=== PATIENT | female | born 1950 | race Caucasian/White ===

== ENCOUNTER 2024-09-27 12:27 | Inpatient (IN) | payer BC, SELFPAY ==
[2024-09-27] VITALS (12 sets, daily range): BP systolic 79–141; BP diastolic 43–68; BMI 29.4
--- NOTE | 2024-09-27 07:15 | ED.GENMED ---
History of Present Illness
General
Chief Complaint: Dizziness
Time Seen by Provider: 09/27/24 06:52
History of Present Illness
History of Present Illness:
74-year-old female with history of hypertension and diabetes presenting to the emergency department for nausea and dizziness. Patient reports symptoms started 2 nights ago after she ate some chicken at a restaurant. After consuming the food,
started to have shaking, fever, nausea, lightheadedness. Denies any associated vomiting or diarrhea. Denies any abdominal pain. Denies chest pain or difficulty breathing. Denies any known sick contacts. Denies weakness or numbness to
extremities. Denies additional acute medical complaint
Past History
Past History
ED Past Medical History: HTN, NIDDM and Other (sleep apnea)
Social History
Tobacco: Non-smoker
Personal:
Living: with family
Phy Exam
Physical Exam
Physical Exam:
General: Well-appearing, no clinical signs of dehydration, nontoxic and in no acute distress
HEENT: protecting airway
Neck: appears supple
CV: Normal heart rate, regular rhythm
Resp: No accessory muscle use, no increased work of breathing, lungs clear to auscultation bilaterally
Abd: Soft and non-distended, no tenderness to palpation
Extremities: No deformities, no swelling
Neuro: alert, no focal neurologic deficit
: deferred
Rectal: deferred
Psych: Normal affect
Skin: Intact
Course
Orders/Labs/Results
Orders:
Orders
09/27/24 07:00
EKG [Electrocardiogram (*1)] Urgent
Reason for Study: Chest Pain
EKG- Treatment ONCE
09/27/24 07:09
0.9% Sodium Chloride 1000 ml [Nss] 1,000 ml IV BOLUS
09/27/24 07:29
Ondansetron Injectable [Zofran] 4 mg IV NOW STA
09/27/24 07:30
COVID-19 Antigen Urgent
Source: Nasal Swab
Complete Blood Count/With Diff Urgent
Comprehensive Metabolic Panel Urgent
Urinalysis Reflex To Culture Urgent
Date Specimen was Collected: 09/27/24
Time Specimen was Collected: 07:19
Urine Microscopic Reflex Cult Urgent
Influenza A+B Rapid Molecular Urgent
SANJEEV Source: Nasal Swab
Specimen Description:
Urine Culture Urgent
SANJEEV Source: U
Specimen Description:
Date Specimen was Collected: 09/27/24
Time Specimen was Collected: 07:19
09/27/24 09:01
CT Abd/pel Without Iv Or Oral Urgent
Comment:
Reason For Exam: dizziness, fever, right flank pain
09/27/24 10:35
Cefepime HCl [Maxipime] 2,000 mg IV NOW STA
09/27/24 10:45
Blood Culture Q30M
SANJEEV Source: Blood/Venous
Specimen Description:
09/27/24 11:15
Blood Culture Q30M
SANJEEV Source: Blood/Venous
Specimen Description:
Abnormal Lab Results
09/27/24
07:30
WBC 13.0 H 10^3/uL
(4.8-10.8)
RBC 4.01 L 10^6/uL
(4.20-5.40)
Hgb 11.4 L g/dL
(12.0-16.0)
Hct 34.1 L %
(37.0-47.0)
Abs Immat Gran (auto) 0.1 H 10^3/uL
(0-0.05)
Absolute Neuts (auto) 11.1 H 10^3/uL
(1.4-6.5)
Absolute Lymphs (auto) 0.6 L 10^3/uL
(1.2-3.4)
Absolute Monos (auto) 1.2 H 10^3/uL
(0.1-0.6)
Immature Gran % 0.8 H %
(0-0.5)
Neutrophils % 85.6 H %
(42.2-75.2)
Lymphocytes % 4.5 L %
(20.5-51.1)
Sodium 132 L mmol/L
(135-145)
Carbon Dioxide 16 L mmol/L
(22-30)
BUN 36 H mg/dl
(7-17)
Creatinine 1.9 H mg/dL
(0.6-1.0)
Glucose 166 H mg/dl
(70-99)
Total Protein 6.1 L g/dl
(6.3-8.2)
Ur Occult Blood Reflex 4+ A
(Negative)
Leukocyte Esterase Rfl 3+ A
(Negative)
Urine RBC 7-10 A /HPF
(0-2)
Urine WBC (Reflex) >100 A /HPF
(0-5)
Urine Bacteria (Reflex) Few A
(Negative)
Urine Albumin (Reflex) 3+ A
(Neg - Trace)
09/27/24 07:30
09/27/24 07:30
Vital Signs
Initial and Last Documented VS:
Initial Vital Signs
Temp Pulse Resp BP Pulse Ox
98.2 F 70 20 100/64 98
09/27/24 06:28 09/27/24 06:28 09/27/24 06:28 09/27/24 06:28 09/27/24 06:28
Last Documented Vital Signs
Temp Pulse Resp BP Pulse Ox
98.2 F 90 24 100/64 94
09/27/24 06:28 09/27/24 10:45 09/27/24 10:45 09/27/24 06:28 09/27/24 10:45
MDM/Problems Addressed
MDM/Problems Addressed:
74-year-old female with history of hypertension and diabetes presenting to the emergency department for dizziness, chills, shaking. Vital signs on arrival are normal.
On exam, patient is resting comfortably, no acute distress or discomfort. Patient afebrile, nontoxic. Reassuring examination. Unremarkable cardiac pulmonary exam. No focal neurologic deficits. Patient is symptom started after eating food at a
restaurant. Could be secondary to something that she ate, however no specific GI symptoms. Does note fevers chills, generally feeling unwell. Possible viral syndrome. Will send COVID and flu. EKG obtained, nonischemic no arrhythmia. Plan for
screening laboratory analysis. Will treat patient therapeutically with IV fluids and Zofran and reassess for improvement
09:00 -labs show leukocytosis and JASPER. Urine shows hematuria and evidence of infection. Patient continues to deny any abdominal pain, notes some mild right-sided flank pain. Reports that she has had kidney stones in the past, however has not felt
them. Will obtain CT imaging to rule out stone and possible developing infected stone
10:35 - CT does show a 7 mm stone in the right proximal ureter with hydro and some stranding. Concern for developing infection. In discussion with urology, plan for admission and antibiotic
*Pulse Oximetry
SaO2: 98
Oxygen Mode of Delivery: Room air
Patient hypoxic: no
*EKG
Interpreted by ED Provider?: Yes
EKG Intrepretation Date: 09/27/24
EKG Intrepretation Time: 07:29
Interpretation: normal
Comparison EKG: no changes (04/06/2015)
Heart Rate: 69
Rate: normal
Rhythm: sinus
[place]: normal axis
Interval: normal interval
QRS Pattern: normal QRS
Ischemia: no ischemia
*Critical Care Note
Total Time (30-74mins, 75-104mins- exclusive of procedures): Not Applicable
ED Attending Note
-
Portions of this chart may have been created with voice recognition software.� Occasional wrong word or��sound alike� substitutions may have occurred due to the inherent limitations of voice recognition software.
Discharge Plan
Departure
Patient Disposition: Admit
Date of Disposition: 09/27/24
Time of Disposition: 10:37
Presentation/result/management discussed w/ accepting MD/: Hospitalist
Patient with high blood pressure during this ER visit?: No
Condition: Fair
Discharge Problem:
Calculus of proximal right ureter, Urinary tract infection
Prescriptions:
No Action
lisinopril 20 MG tablet
20 mg PO DAILY
metoprolol tartrate [Lopressor] 50 MG tablet
50 mg PO DAILY
aspirin 81 MG tablet,chewable
81 mg PO DAILY
Januvia 100 MG tablet
100 mg PO DAILY
atorvastatin [Lipitor] 10 mg Tablet
10 mg PO HS
metformin 500 mg Tablet Extended Release 24 Hr
1,000 mg PO BID
Referrals:
Kathy Cummins DO [Family Provider, Family Practice]
Interventions
Interventions:
*Risk Screen - Suicide Last Done: 09/27/24 06:28
*Neglect/Abuse Screening Last Done: 09/27/24 06:28
Discharge Date and Time
Print Language: ARMENIAN
[2024-09-27] MEDS: NSS 1000 IV ×3 (07:39→16:01)
[2024-09-27] MEDS: ZOFRAN 4 MG IV ×2 (07:40→11:13)
[2024-09-27 08:02] LABS: Hematocrit 34.1 % (37.0-47.0); Hemoglobin 11.4 g/dL (12.0-16.0); Mean Corp Hgb Conc. 33.4 g/dL (33.0-37.0); Mean Corpuscular Volume 85.0 fL (81.0-99.0); Nucleated Red Blood Cells % 0 %; Platelet Count 191 10^3/uL (130-400); Red Cell Dist. Width 13.0 % (11.5-14.5)
[2024-09-27 08:19] LABS: COVID-19 Antigen Negative (Negative)
[2024-09-27 08:21] LABS: ALT (SGPT) 19 U/L (0-35); AST (SGOT) 18 U/L (14-36); Albumin 3.9 g/dl (3.5-5.0); Alkaline Phosphatase 56 U/L (38-126); Blood Urea Nitrogen 36 mg/dl (7-17); Calcium 10.2 mg/dl (8.4-10.2); Carbon Dioxide 16 mmol/L (22-30); Chloride 106 mmol/L (98-107); Estimated Creatinine Clearance 26 ml/min; Glucose 166 mg/dl (70-99); Potassium 4.4 mmol/L (3.5-5.1); Sodium 132 mmol/L (135-145); Total Protein 6.1 g/dl (6.3-8.2); eGFR 27.20
[2024-09-27 08:29] LABS: Urine Character Cloudy (Clear)
[2024-09-27 09:52] LABS: Urine Squamous Cell 0-2 /LPF (Few); Urine Urothelial Cell 0-2 /LPF (FEW)
[2024-09-27 09:53] LABS: Urine White Cell >100 /HPF (0-5)
[2024-09-27] MEDS: TYLENOL 1000 MG PO (11:12)
[2024-09-27] MEDS: MAXIPIME 2000 MG IV (11:12)
--- NOTE | 2024-09-27 11:43 | HPS.HSE ---
Family Physician
-
Family Physician: Kathy Cummins DO
Chief Complaint
-
nausea and dizziness
History of Present Illness
Ms. Mirian Dale is a 74 yo woman with hx essential HTN, NIDDM, LASHAE presents to the ER with nausea and dizziness.
Symptoms started Wednesday which she attributed to a bad meal she ate. She was spiking fevers at home. No significant pain. No vomiting. No chest pain or shortness of breath. She currently feels flushed. No diarrhea.
Medical History
Past Medical History
Past Medical History: Reports HTN and NIDDM
Past Surgical History: Reports Other
Social History
Tobacco: Non-smoker
Alcohol: None
Family History
Family History: Not pertinent
Allergies / Home Medications
Allergies reflects when Allergies were last updated in [facility].
Home Medications with original date entered in [facility]
Allergy/Medication List:
Allergies
Allergy/AdvReac Type Severity Reaction Status Date / Time
No Known Allergies Allergy Verified 09/27/24 06:31
Home Medications
aspirin 81 mg chewable tablet 81 mg PO DAILY 04/21/15
lisinopril 20 mg tablet 20 mg PO DAILY 04/21/15
metoprolol tartrate 50 mg tablet (Lopressor) 50 mg PO DAILY 04/21/15
sitagliptin phosphate 100 mg tablet (Januvia) 100 mg PO DAILY 04/21/15
atorvastatin 10 mg tablet (Lipitor) 10 mg PO HS 09/27/24
metformin 500 mg tablet,extended release 24 hr 1,000 mg PO BID 09/27/24
Review of Systems
-
History Source: Patient
A 12 point ROS was completed and negative except as noted: Yes
Physical Exam
Vital Signs
Vital Signs
Temp Pulse Resp BP Pulse Ox
102.6 F H 90 24 100/64 94
09/27/24 11:16 09/27/24 10:45 09/27/24 10:45 09/27/24 06:28 09/27/24 10:45
Physical Exam
General: Other (patient appears fatigued and flushed )
HEENT: PERRLA
Respiratory: Clear; No Wheezes
Cardiac: S1/S2 and Regular Rhythm
GI: Soft and Non Tender
Musculoskeletal: No Edema
Skin: Warm and Dry; No Rash
Neuro: AO x 3
Psych: Calm
Laboratory Results
-
09/27/24 07:30
09/27/24 07:30
Laboratory Results
Total Bilirubin 0.6 mg/dl (0.2-1.3) 09/27/24 07:30
AST 18 U/L (14-36) 09/27/24 07:30
ALT 19 U/L (0-35) 09/27/24 07:30
Alkaline Phosphatase 56 U/L (38-126) 09/27/24 07:30
Data Reviewed
-
Diagnostic Radiology: Report Reviewed by me
Lab Data: Labs Reviewed by me
Impression/Plan
-
Ms. Mirian Dale is a 74 yo woman with hx essential HTN, NIDDM, LASHAE presents to the ER with nausea and dizziness.
Triage VS: T 98.2, P 70, RR 20, BP 100/64, SpO2 98%
LABS: WBC 13, Hg 11.4, PLT 191, Na 132, K+ 4.4, CO2 16, BUN 36, Cr 1.9, Lactate 2.4, liver enzymes WNL
UA with > 100 WBC, 3+ leuk esterase, 4+ blood
CT A/P
IMPRESSION:
There is a 7 mm stone within the proximal right ureter with mild hydronephrosis in the superior pole of the right kidney. Additionally there is a 2.2 cm stone in the right renal pelvis extending into the lower pole calyces. There is nonspecific
asymmetric stranding along the right kidney. Recommend correlation with urinalysis for possible infection.
Colonic diverticulosis.
Cholelithiasis.
MAR: IV Zofran x 2, IV Cefepime 2G, 1L bolus x 2, tylenol
Urosepsis in setting of Obstructing Nephrolithiasis
Severe Sepsis
-admit to tele in setting of severe sepsis
-patient febrile, just received 1G Tylenol and cannot receive motrin 2/2 JASPER. can use Ice packs as needed
-IV Cefepime
-trend lactate and bolus PRN
-follow up urine and blood cultures
-NPO for cysto and stent placement this afternoon, appreciate Urology consult
-IV Zofran PRN nausea
-patient denies significant pain
JASPER in setting of sepsis and obstruction
-IVF
-stent placement today
-hold APPOINTMENT SETTER Lisinopril
-hold APPOINTMENT SETTER Metformin
Essential HTN
-APPOINTMENT SETTER Metoprolol
-hold APPOINTMENT SETTER Lisinopril
NIDDM
-hold APPOINTMENT SETTER Metformin and Januvia
-ISS low
HLD
-APPOINTMENT SETTER Statin
DVT PPx SCD
FULL CODE
76 minutes spent on patient care
--- NOTE | 2024-09-27 12:38 | W.PN.URO.CBU ---
Today's Communication / Plan
-
ti op room
Assessment / Plan
-
fluid resuscitaion iv abs check cxs then stnet no stone removal Spokw e tpwih pt and hospitalixst
Diagnosis
-
Date of Service: September 27, 2024
-
Patient Diagnosis:
sepsis syndrome 7mm prox rt ureteral stone
Post Op Day:
Subjective
-
new onset fever
Objective
-
Vital Signs
Temp Pulse Resp BP Pulse Ox
102.7 F H 87 19 141/68 90
09/27/24 12:12 09/27/24 11:45 09/27/24 11:45 09/27/24 11:17 09/27/24 11:30
Laboratory Results
09/27/24 07:30
09/27/24 07:30
Review of Systems
-
Constitutional: Fever, Fatigue and Night Sweats
: Flank Pain
Physical Exam
-
General - well developed, well nourished, a o x 3 fevr to 102
Chest - clear bilaterally
Abdomen - soft, non-tender, positive bowel sounds, no CVAT, no incisional pain or distention
Genitalia - normal
Rectal - normal
Skin - warm & dry with no rash
Neuro - AOx3, no motor deficits
Extremities - no clubbing, no cyanosis, no edema
Incision - clean, dry
Dressing - clean, dry, intact
Care Review
Data Reviewed
Discussed with: Hospitalist, Nursing and Family
CT Scan: Image Pers Reviewed
[2024-09-27 14:44] LABS: Glucose - Point of Care 156 mg/dl (70-99)
[2024-09-27 15:40] LABS: Glucose - Point of Care 192 mg/dl (70-99)
[2024-09-27] MEDS: NOVOLOG FLEXPEN-LOW RESISTANCE 1 UNITS SC (17:04)
--- NOTE | 2024-09-27 17:44 | PTCARENOTE ---
Received pt from OR @ 1600. AAOx3 but tearful post op. VSS. Anna placed in OR. Oriented to room and call moore.
[2024-09-27] MEDS: LIPITOR 10 MG PO (19:27)
[2024-09-27 21:40] LABS: Glucose - Point of Care 257 mg/dl (70-99)
[2024-09-27] MEDS: STERILE WATER FOR INJECTION 10 ML IV (23:02)
[2024-09-27] MEDS: MAXIPIME 1000 MG IV (23:03)
[2024-09-28] VITALS (7 sets, daily range): BP systolic 98–138; BP diastolic 48–67
[2024-09-28] MEDS: NSS 1000 IV ×2 (00:10→05:13)
[2024-09-28 07:42] LABS: Glucose - Point of Care 134 mg/dl (70-99)
[2024-09-28] MEDS: NOVOLOG FLEXPEN-LOW RESISTANCE SC ×3 (07:44→17:16)
[2024-09-28] MEDS: LOW STRENGTH ASPIRIN 81 MG PO (07:45)
[2024-09-28] MEDS: LOPRESSOR 50 MG PO (07:45)
[2024-09-28 08:17] LABS: Hematocrit 32.6 % (37.0-47.0); Hemoglobin 10.4 g/dL (12.0-16.0); Mean Corp Hgb Conc. 31.9 g/dL (33.0-37.0); Mean Corpuscular Volume 87.4 fL (81.0-99.0); Nucleated Red Blood Cells % 0 %; Platelet Count 187 10^3/uL (130-400); Red Cell Dist. Width 13.4 % (11.5-14.5)
--- NOTE | 2024-09-28 08:35 | W.PN.URO.CBU ---
Today's Communication / Plan
-
per hospoitalist
Assessment / Plan
-
fluid resuscitaion iv abs check cxs pt stented can go home when sytabnle and will follopew as outpatient for stones i few weeks
Diagnosis
-
Date of Service: September 28, 2024
-
Patient Diagnosis:
Post Op Day:
Patient Diagnosis:
sepsis syndrome 7mm prox rt ureteral stone
Post Op Day:
Subjective
-
feeling better
Objective
-
Vital Signs
Temp Pulse Resp BP Pulse Ox
97.6 F 62 16 122/56 98
09/28/24 07:25 09/28/24 07:25 09/28/24 07:25 09/28/24 07:25 09/28/24 07:25
Intake and Output
09/27/24 09/28/24 09/29/24
06:59 06:59 06:59
Intake Total 1060 / 1060
Output Total 600 / 600 650 / 650
Balance 460 / 460 -650 / -650
Intake:
Oral fluids 960 / 960
IV fluids (Total) 100 / 100
normosool 100 / 100
Output:
Urine, Anna 600 / 600 650 / 650
Laboratory Results
09/28/24 06:41
Review of Systems
-
: Flank Pain and Urgency
Physical Exam
-
General - well developed, well nourished, no acute distress
Chest - clear bilaterally
Abdomen - soft, non-tender, positive bowel sounds, no CVAT, no incisional pain or distention
Genitalia - normal
Rectal - normal
Skin - warm & dry with no rash
Neuro - AOx3, no motor deficits
Extremities - no clubbing, no cyanosis, no edema
Incision - clean, dry
Dressing - clean, dry, intact
Care Review
Data Reviewed
Discussed with: Hospitalist and Nursing
[2024-09-28 09:07] LABS: Blood Urea Nitrogen 41 mg/dl (7-17); Calcium 9.2 mg/dl (8.4-10.2); Carbon Dioxide 17 mmol/L (22-30); Chloride 111 mmol/L (98-107); Estimated Creatinine Clearance 29 ml/min; Glucose 133 mg/dl (70-99); Magnesium 1.7 mg/dl (1.6-2.3); Potassium 4.2 mmol/L (3.5-5.1); Sodium 137 mmol/L (135-145); eGFR 31.08
[2024-09-28 10:34] LABS: Glycohemoglobin (HgbA1c) 6.4 % (4.0-5.6)
--- NOTE | 2024-09-28 10:40 | W.PN.HOSP.TC ---
Today's Communication/Plan
-
IV Cefepime
follow up cultures
stop fluids
monitor BMP
Assessment / Plan
Assessment / Plan
Ms. Mirian Dale is a 74 yo woman with hx essential HTN, NIDDM, LASHAE presents to the ER with nausea and dizziness, found to have severe sepsis 2/2 UTI with obstructing nephrolithiasis.
CT A/P
IMPRESSION:
There is a 7 mm stone within the proximal right ureter with mild hydronephrosis in the superior pole of the right kidney. Additionally there is a 2.2 cm stone in the right renal pelvis extending into the lower pole calyces. There is nonspecific
asymmetric stranding along the right kidney. Recommend correlation with urinalysis for possible infection.
Colonic diverticulosis.
Cholelithiasis.
MAR: IV Zofran x 2, IV Cefepime 2G, 1L bolus x 2, tylenol
Urosepsis in setting of Obstructing Nephrolithiasis
Severe Sepsis
-s/p OR with stent placement afternoon of admission 09/27
-s/p fluid resuscitation with normalization of lactate
-IV Cefepime while awaiting urine culture
-follow up urine and blood cultures
-IV Zofran PRN nausea
JASPER in setting of sepsis and obstruction
-s/p stent placement and fluid resuscitation
-hold further fluids
-hold ELECTRICAL MANUFACTURING TECHNICIAN Lisinopril
-hold ELECTRICAL MANUFACTURING TECHNICIAN Metformin
Non-gap metabolic acidosis; hyperchloremic metabolic acidosis in setting of NS
-normalization of lactate
-stop fluids
Essential HTN
-ELECTRICAL MANUFACTURING TECHNICIAN Metoprolol
-hold ELECTRICAL MANUFACTURING TECHNICIAN Lisinopril
NIDDM
-hold ELECTRICAL MANUFACTURING TECHNICIAN Metformin and Januvia
-ISS low
HLD
-ELECTRICAL MANUFACTURING TECHNICIAN Statin
DVT PPx SCD
FULL CODE
51 minutes spent on patient care
Anticipated Discharge: 24 - 48 hours
Subjective/Interval History
-
Date of Service: September 28, 2024
feeling better today
urinated post rodriguez removal
Objective Data
-
Labs:
Laboratory Results
09/28/24
06:41
WBC 9.5
Hgb 10.4 L
Hct 32.6 L
Plt Count 187
Sodium 137
Potassium 4.2
Chloride 111 H
Carbon Dioxide 17 L
BUN 41 H
Creatinine 1.7 H
Glucose 133 H
Calcium 9.2
Vital Signs:
Vital Signs
Temp Pulse Resp BP Pulse Ox
97.6 F 62 16 122/56 98
09/28/24 07:25 09/28/24 07:25 09/28/24 07:25 09/28/24 07:25 09/28/24 07:25
I&O
09/27/24 09/28/24 09/29/24
06:59 06:59 06:59
Intake Total 1060 / 1060
Output Total 600 / 600 650 / 650
Balance 460 / 460 -650 / -650
Review of Systems
-
History Source: Patient
All other systems: Reviewed and negative
Physical Exam
-
General: Other (appears less flushed, conversant, comfortable )
HEENT: PERRLA
Respiratory: Clear to Auscultation; Negative Wheezes
Cardiac: Regular Rhythm and S1/S2
GI: Soft
Musculoskeletal: No Edema
Skin: Warm and Dry; Negative Rash
Neuro: AO x 3
Psych: Calm
Data Reviewed
-
Diagnostic Radiology: Report Reviewed by me
Labs: Labs Reviewed by me
[2024-09-28] MEDS: STERILE WATER FOR INJECTION 10 ML IV (12:25)
[2024-09-28] MEDS: MAXIPIME 1000 MG IV (12:25)
[2024-09-28 14:06] LABS: Glucose - Point of Care 120 mg/dl (70-99)
--- NOTE | 2024-09-28 15:20 | CM ---
Patient seen bedside w/ spouse. Initial assessment completed. Patient is a 74 yo woman with hx essential HTN, NIDDM, LASHAE presents to the ER with nausea and dizziness. Found to have sepsis. On IV Cefepime
Patient resides w/ spouse in a 2ST[facility], no steps to enter. Patient is independent w/ ambulation, no device required. Independent w/ ADLs. Patient has a grab bar in the bathroom. Patient was at [facility] following knee replacements. OP therapy
following rehab at [facility] and .
Address, points of contact and insurance verified
PCP: Elsie Renee
Pharmacy: [facility]
Plan: Anticipate home, no needs
[2024-09-28 16:51] LABS: Glucose - Point of Care 133 mg/dl (70-99)
[2024-09-28] MEDS: TYLENOL 650 MG PO (20:10)
[2024-09-28 21:29] LABS: Glucose - Point of Care 200 mg/dl (70-99)
[2024-09-28] MEDS: LIPITOR 10 MG PO (21:51)
[2024-09-29] MEDS: STERILE WATER FOR INJECTION 10 ML IV ×2 (00:31→12:32)
[2024-09-29] MEDS: MAXIPIME 1000 MG IV ×2 (00:31→12:31)
[2024-09-29] MEDS: FLUSH (NSS) 1 FLUSH IV (00:32)
[2024-09-29 03:33] VITALS: BP 105/62
[2024-09-29 07:31] VITALS: BP 120/53
[2024-09-29] MEDS: LOW STRENGTH ASPIRIN 81 MG PO (07:50)
[2024-09-29] MEDS: LOPRESSOR 50 MG PO (07:50)
[2024-09-29 08:07] LABS: Glucose - Point of Care 160 mg/dl (70-99)
[2024-09-29 08:20] LABS: Hematocrit 28.4 % (37.0-47.0); Hemoglobin 9.2 g/dL (12.0-16.0); Mean Corp Hgb Conc. 32.4 g/dL (33.0-37.0); Mean Corpuscular Volume 87.1 fL (81.0-99.0); Platelet Count 159 10^3/uL (130-400); Red Cell Dist. Width 13.2 % (11.5-14.5)
[2024-09-29] MEDS: NOVOLOG FLEXPEN-LOW RESISTANCE 1 UNITS SC ×2 (08:37→12:27)
[2024-09-29 09:05] LABS: Blood Urea Nitrogen 33 mg/dl (7-17); Calcium 9.3 mg/dl (8.4-10.2); Carbon Dioxide 21 mmol/L (22-30); Chloride 112 mmol/L (98-107); Estimated Creatinine Clearance 38 ml/min; Glucose 148 mg/dl (70-99); Potassium 4.4 mmol/L (3.5-5.1); Sodium 137 mmol/L (135-145); eGFR 42.88
--- NOTE | 2024-09-29 10:24 | W.PN.URO.CBU ---
Today's Communication / Plan
-
fever last pmwill hod d/c ntol cxs back
Assessment / Plan
-
fluid resuscitaion iv abs check cxs pt stented can go home when sytabnle and will follopew as outpatient for stones i few weeks [t has exected staent pain but fevr last pm worisome stil await ur cxs sens
Diagnosis
-
Date of Service: September 29, 2024
-
Patient Diagnosis:
Post Op Day:
Patient Diagnosis:
Post Op Day:
Patient Diagnosis:
sepsis syndrome 7mm prox rt ureteral stone
Post Op Day:
Subjective
-
fever ast pm beter this am
Objective
-
Vital Signs
Temp Pulse Resp BP Pulse Ox
98.0 F 58 20 120/53 93
09/29/24 07:31 09/29/24 07:31 09/29/24 07:31 09/29/24 07:31 09/29/24 07:31
Intake and Output
09/28/24 09/29/24 09/30/24
06:59 06:59 06:59
Intake Total 1060 / 1060 480 / 480
Output Total 600 / 600 650 / 650
Balance 460 / 460 -170 / -170
Intake:
Oral fluids 960 / 960 480 / 480
IV fluids (Total) 100 / 100
normosool 100 / 100
Output:
Urine, Anna 600 / 600 650 / 650
Other:
Number of approximated MODERATE 2
amounts of urine
Laboratory Results
09/29/24 07:27
09/29/24 07:27
Review of Systems
-
: Frequency and Flank Pain
Physical Exam
-
General - well developed, well nourished, no acute distress
Chest - clear bilaterally
Abdomen - soft, non-tender, positive bowel sounds, no CVAT, no incisional pain or distention
Genitalia - normal
Rectal - normal
Skin - warm & dry with no rash
Neuro - AOx3, no motor deficits
Extremities - no clubbing, no cyanosis, no edema
Incision - clean, dry
Dressing - clean, dry, intact
Care Review
Data Reviewed
Discussed with: Hospitalist and Nursing
[2024-09-29 12:10] LABS: Glucose - Point of Care 154 mg/dl (70-99)
--- NOTE | 2024-09-29 12:11 | W.PN.HOSP.TC ---
Today's Communication/Plan
-
anticipate DC tomorrow post urine culture results
monitor fever curve
Assessment / Plan
Assessment / Plan
Ms. Mirian Dale is a 74 yo woman with hx essential HTN, NIDDM, LASHAE presents to the ER with nausea and dizziness, found to have severe sepsis 2/2 UTI with obstructing nephrolithiasis.
CT A/P
IMPRESSION:
There is a 7 mm stone within the proximal right ureter with mild hydronephrosis in the superior pole of the right kidney. Additionally there is a 2.2 cm stone in the right renal pelvis extending into the lower pole calyces. There is nonspecific
asymmetric stranding along the right kidney. Recommend correlation with urinalysis for possible infection.
Colonic diverticulosis.
Cholelithiasis.
MAR: IV Zofran x 2, IV Cefepime 2G, 1L bolus x 2, tylenol
Urosepsis in setting of Obstructing Nephrolithiasis
Severe Sepsis
-s/p OR with stent placement afternoon of admission 09/27
-s/p fluid resuscitation with normalization of lactate
-IV Cefepime while awaiting urine culture, per micro should be back tomorrow
-follow up urine and blood cultures
-IV Zofran PRN nausea
JASPER in setting of sepsis and obstruction
-s/p stent placement and fluid resuscitation
-hold further fluids
-hold PATIENT CONSUMER MARKETER Lisinopril
-hold PATIENT CONSUMER MARKETER Metformin
Non-gap metabolic acidosis; hyperchloremic metabolic acidosis in setting of NS
-normalization of lactate
-stop fluids
Essential HTN
-PATIENT CONSUMER MARKETER Metoprolol
-hold PATIENT CONSUMER MARKETER Lisinopril
NIDDM
-hold PATIENT CONSUMER MARKETER Metformin and Januvia
-ISS low
HLD
-PATIENT CONSUMER MARKETER Statin
DVT PPx SCD, encourage ambulation
FULL CODE
51 minutes spent on patient care
Anticipated Discharge: 24 - 48 hours
Subjective/Interval History
-
Date of Service: September 29, 2024
feeling well this morning
fever yesterday evening 100.8
Objective Data
-
Labs:
Laboratory Results
09/29/24
07:27
WBC 4.4 L
Hgb 9.2 L
Hct 28.4 L
Plt Count 159
Sodium 137
Potassium 4.4
Chloride 112 H
Carbon Dioxide 21 L
BUN 33 H
Creatinine 1.3 H
Glucose 148 H
Calcium 9.3
Vital Signs:
Vital Signs
Temp Pulse Resp BP Pulse Ox
98.0 F 58 20 120/53 93
09/29/24 07:31 09/29/24 07:31 09/29/24 07:31 09/29/24 07:31 09/29/24 07:31
I&O
09/28/24 09/29/24 09/30/24
06:59 06:59 06:59
Intake Total 1060 / 1060 480 / 480
Output Total 600 / 600 650 / 650
Balance 460 / 460 -170 / -170
Review of Systems
-
History Source: Patient
All other systems: Reviewed and negative
Physical Exam
-
General: No Apparent Distress
HEENT: PERRLA
Respiratory: Clear to Auscultation; Negative Wheezes
Cardiac: Regular Rhythm and S1/S2
GI: Soft and Nontender
Musculoskeletal: No Edema
Skin: Warm and Dry; Negative Rash
Neuro: AO x 3
Psych: Calm
Data Reviewed
-
Diagnostic Radiology: Report Reviewed by me
Labs: Labs Reviewed by me
[2024-09-29] MEDS: VISBIOME 1 CAP PO (12:31)
[2024-09-29 15:04] VITALS: BP 121/60
[2024-09-29 16:48] LABS: Glucose - Point of Care 223 mg/dl (70-99)
[2024-09-29] MEDS: NOVOLOG FLEXPEN-LOW RESISTANCE 2 UNITS SC (18:10)
[2024-09-29] MEDS: LIPITOR 10 MG PO (21:45)
[2024-09-29 21:50] LABS: Glucose - Point of Care 197 mg/dl (70-99)
[2024-09-29 23:45] VITALS: BP 132/64
[2024-09-30] MEDS: STERILE WATER FOR INJECTION 10 ML IV (00:43)
[2024-09-30] MEDS: FLUSH (NSS) 1 FLUSH IV (00:43)
[2024-09-30] MEDS: MAXIPIME 1000 MG IV (00:43)
[2024-09-30 07:00] VITALS: BP 126/65
[2024-09-30 07:45] LABS: Glucose - Point of Care 176 mg/dl (70-99)
[2024-09-30] MEDS: NOVOLOG FLEXPEN-LOW RESISTANCE 1 UNITS SC (08:39)
[2024-09-30] MEDS: LOPRESSOR 50 MG PO (08:40)
[2024-09-30] MEDS: LOW STRENGTH ASPIRIN 81 MG PO (08:40)
[2024-09-30] MEDS: VISBIOME 1 CAP PO (08:40)
[2024-09-30 10:32] LABS: Blood Urea Nitrogen 26 mg/dl (7-17); Calcium 10.2 mg/dl (8.4-10.2); Carbon Dioxide 21 mmol/L (22-30); Chloride 110 mmol/L (98-107); Estimated Creatinine Clearance 42 ml/min; Glucose 193 mg/dl (70-99); Potassium 4.4 mmol/L (3.5-5.1); Sodium 138 mmol/L (135-145); eGFR 47.21
--- NOTE | 2024-09-30 10:39 | W.PN.HOSP.TC ---
Today's Communication/Plan
-
OK for DC today
Assessment / Plan
Assessment / Plan
Ms. Mirian Dale is a 74 yo woman with hx essential HTN, NIDDM, LASHAE presents to the ER with nausea and dizziness, found to have severe sepsis 2/2 UTI with obstructing nephrolithiasis.
CT A/P
IMPRESSION:
There is a 7 mm stone within the proximal right ureter with mild hydronephrosis in the superior pole of the right kidney. Additionally there is a 2.2 cm stone in the right renal pelvis extending into the lower pole calyces. There is nonspecific
asymmetric stranding along the right kidney. Recommend correlation with urinalysis for possible infection.
Colonic diverticulosis.
Cholelithiasis.
MAR: IV Zofran x 2, IV Cefepime 2G, 1L bolus x 2, tylenol
Urosepsis in setting of Obstructing Nephrolithiasis
Severe Sepsis
-s/p OR with stent placement afternoon of admission 09/27, plans for definitive stone treatment in a few weeks
-s/p fluid resuscitation with normalization of lactate
-IV Cefepime; will transition to oral Keflex based on culture results (Klebsiella species x 2 both sensitive to Cefazolin). Treat for a total of 14 days (10.5 more days --> 21 pills at DC)
-OK for DC today
JASPER in setting of sepsis and obstruction
-s/p stent placement and fluid resuscitation
-creatinine improved to 1.2
Non-gap metabolic acidosis; hyperchloremic metabolic acidosis in setting of NS
-normalization of lactate
-stop fluids
Essential HTN
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
-SBP low/normal off of Lisinopril - will hold at DC and have BP monitored by PCP
NIDDM
-OK to resume oral meds on DC
-ISS low
HLD
-PROJECT ENGINEERING MANAGER Statin
DVT PPx SCD, encourage ambulation
FULL CODE
51 minutes spent on patient care
Anticipated Discharge: Today
Subjective/Interval History
-
Date of Service: September 30, 2024
she is feeling better
feels ready to go home today
no fevers overnight
eating well, feels slightly constipated
Objective Data
-
Labs:
Laboratory Results
09/30/24
09:45
Sodium 138
Potassium 4.4
Chloride 110 H
Carbon Dioxide 21 L
BUN 26 H
Creatinine 1.2 H
Glucose 193 H
Calcium 10.2
Vital Signs:
Vital Signs
Temp Pulse Resp BP Pulse Ox
98.1 F 54 18 126/65 94
09/30/24 07:00 09/30/24 07:00 09/30/24 07:00 09/30/24 07:00 09/30/24 07:00
I&O
09/29/24 09/30/24 10/01/24
06:59 06:59 06:59
Intake Total 480 / 480 120 / 120
Output Total 650 / 650
Balance -170 / -170 120 / 120
Review of Systems
-
History Source: Patient
All other systems: Reviewed and negative
Physical Exam
-
General: No Apparent Distress
HEENT: PERRLA
Respiratory: Clear to Auscultation; Negative Wheezes
Cardiac: Regular Rhythm and S1/S2
GI: Soft and Nontender
Musculoskeletal: No Edema
Skin: Warm and Dry; Negative Rash
Neuro: AO x 3
Psych: Calm
Data Reviewed
-
Diagnostic Radiology: Report Reviewed by me
Labs: Labs Reviewed by me
--- NOTE | 2024-09-30 11:00 | W.DS.TRANS ---
DC Summary - Gate Person
-
Discharge Instructions:
Discharge Diagnosis/Procedures urinary tract infection with nephrolithiasis
status post cystoscopy and stent placement
Diet Regular
Activity As tolerated
Driving Restrictions As prior to admission
Bathing Restrictions None
Instructions:
Stand-Alone Forms:
Changes to Home Medications: Yes
Discharge Medications:
DC Medications w/original date entered in [employer]
aspirin 81 mg chewable tablet 81 mg PO DAILY 04/21/15
lisinopril 20 mg tablet 20 mg PO DAILY 04/21/15
Held on 09/30/24. Instructions: Resume on 10/07/24. follow up with PCP on when to resume
metoprolol tartrate 50 mg tablet (Lopressor) 50 mg PO DAILY 04/21/15
sitagliptin phosphate 100 mg tablet (Januvia) 100 mg PO DAILY 04/21/15
atorvastatin 10 mg tablet (Lipitor) 10 mg PO HS 09/27/24
metformin 500 mg tablet,extended release 24 hr 1,000 mg PO BID 09/27/24
Lactobac/Bifidobac [Visbiome] 1 cap PO DAILY ##0 09/30/24
cephalexin 500 mg capsule 500 mg PO BID #21 caps 09/30/24
polyethylene glycol 3350 17 gram oral powder packet (Miralax) 17 g PO DAILY #14 ea 09/30/24
Home Medication Changes
Hold Lisinopril given your blood pressure was normal off of this medication in the hospital. Measure your blood pressures at home 60-90 minutes after taking Metoprolol. If your systolic blood pressure is over 140 then OK to resume Lisinopril.
Record results and discuss with your PCP.
You have 10 1/2 more days of antibiotics (Keflex 500mg twice a day)
Pending Results: No
--- NOTE | 2024-09-30 11:18 | W.PN.URO.CBU ---
Today's Communication / Plan
-
- Continue antibiotic for 14 day total course as planned
- outpatient follow up with Dr. Ecsobar to discuss next steps in stone removal
Assessment / Plan
-
74F with sepsis and obstructing ureteral stone s/p ureteroscopy and stent placement
- Continue antibiotic for 14 day total course as planned
- outpatient follow up with Dr. Escobar to discuss next steps in stone removal
Diagnosis
-
Date of Service: September 30, 2024
-
Dx:
sepsis
7mm prox rt ureteral stone
Post Op Day:
Subjective
-
Feeling well
fevers resolved
Objective
-
Vital Signs
Temp Pulse Resp BP Pulse Ox
98.1 F 54 18 126/65 94
09/30/24 07:00 09/30/24 07:00 09/30/24 07:00 09/30/24 07:00 09/30/24 07:00
Intake and Output
09/29/24 09/30/24 10/01/24
06:59 06:59 06:59
Intake Total 480 / 480 120 / 120
Output Total 650 / 650
Balance -170 / -170 120 / 120
Intake:
Oral fluids 480 / 480 120 / 120
Output:
Urine, Anna 650 / 650
Other:
Number of approximated MODERATE 2 4
amounts of urine
Laboratory Results
09/29/24 07:27
09/30/24 09:45
Physical Exam
-
General - well developed, well nourished, no acute distress
Chest - clear
Abdomen - soft, non-tender
--- NOTE | 2024-09-30 11:43 | CM ---
CM reviewed chart, patient for discharge today, home no needs.
Plan; home no needs
[2024-09-30 12:09] LABS: Glucose - Point of Care 241 mg/dl (70-99)
--- NOTE | 2024-09-30 12:13 | W.DCSUMMARY ---
Discharge Summary
Discharge Data
Date of Admission: 09/27/24
Date of Discharge: 09/30/24
-
Pending Results: No
Hospital Course
Discharging Physician : Dr. Karin Waldron
Disposition : Home
Primary care physician : Dr. Kathy Cummins
Principal Discharge diagnosis : urinary tract infection with nephrolithiasis status post cystoscopy and stent placement, acute kidney injury
Hospital Course :
Ms. Mirian Dlae is a 74 yo woman with hx essential HTN, NIDDM, LASHAE presents to the ER with nausea, weakness and fevers. Triage vitals with T up to 102.7, BP 100/64. Labs with WBC 13, creatinine 1.9. UA inflamed and CT showed a 7mm stone
within the proximal right ureter with mild hydronephrosis.
She was admitted to medicine with urgent Urology consult for UTI with obstructing nephrolithiasis. She was given IV fluids, IV Cefepime, and taken to OR later that afternoon for cystoscopy and stent placement. Culture returned positive for
Klebsiella pneumoniae and Klebsiella ozaenae both sensitive to Cefazolin. She is discharged on oral Keflex to complete a total 14 days course antibiotics.
Patient's creatinine trended down to 1.2 on day of discharge. OK to resume Metformin on DC. She is asked to continue to hold Lisinopril given systolic blood pressures measured 100's-low 130's off of this medication. She is asked to check blood
pressures at home and follow up with PCP on when Lisinopril can be resumed.
Time spent on discharge was 35 minutes.
Important imaging findings :
CT A/P
IMPRESSION:
There is a 7 mm stone within the proximal right ureter with mild hydronephrosis in the superior pole of the right kidney. Additionally there is a 2.2 cm stone in the right renal pelvis extending into the lower pole calyces. There is nonspecific
asymmetric stranding along the right kidney. Recommend correlation with urinalysis for possible infection.
Colonic diverticulosis.
Cholelithiasis.
Procedure findings :
Discharge Plan
-
Patient Disposition: Home (Routine Discharge)
Discharge Diagnosis/Procedures: urinary tract infection with nephrolithiasis status post cystoscopy and stent placement
Diet: Regular
Activity: As tolerated
Driving Restrictions: As prior to admission
Bathing Restrictions: None
Referrals:
Krzysztof Escobar MD [Active, Urology]
Referral Note: you have a stent expect frequncy and urgency and blood in urine and rt sided discomfort you have no restrictions and can go on vacation but call Dr escobar urology [phone] to schedule appt so that we can address stones on
return from vacation
Kathy Cummins DO [Family Provider, Family Practice] - in less than 1 week
Additional Discharge Medication Instructions: Hold Lisinopril given your blood pressure was normal off of this medication in the hospital. Measure your blood pressures at home 60-90 minutes after taking Metoprolol. If your systolic blood pressure
is over 140 then OK to resume Lisinopril. Record results and discuss with your PCP.
You have 10 1/2 more days of antibiotics (Keflex 500mg twice a day)
Prescriptions:
New
cephalexin 500 mg Capsule
500 mg PO BID Qty: 21 0RF
Lactobac/Bifidobac [Visbiome]
1 cap PO DAILY Qty: 0 0RF
polyethylene glycol 3350 [Miralax] 17 gram powder in packet
17 g PO DAILY Qty: 14 0RF
Rx Instructions:
hold for loose stools
Continued
metoprolol tartrate [Lopressor] 50 MG tablet
50 mg PO DAILY
aspirin 81 MG tablet,chewable
81 mg PO DAILY
Januvia 100 MG tablet
100 mg PO DAILY
atorvastatin [Lipitor] 10 mg Tablet
10 mg PO HS
metformin 500 mg Tablet Extended Release 24 Hr
1,000 mg PO BID
Held
lisinopril 20 MG tablet
20 mg PO DAILY
Hold Instructions: Resume on 10/07/24. follow up with PCP on when to resume
Discharge Orders:
Discharge Patient (As Directed); Ordered 09/30/24
Ordered By: Karin Waldron
Discharge Date and Time
Print Language: URDU
[2024-09-30] MEDS: KEFLEX 500 MG PO (13:03)
[2024-09-30] MEDS: NOVOLOG FLEXPEN-LOW RESISTANCE 2 UNITS SC (13:04)
[2024-09-30 14:29] VITALS: BP 123/60
== END 2024-09-30 14:33 | disposition home or self-care (01) | DRG 854 ==
LOC: 4 WEST ACU 12:27
PROVIDERS: Specialist; ADMITTING PHYSICIAN Student in an Organized Health Care Education/Training Program; CONSULT PHYSICIAN Specialist; EMERGENCY PHYSICIAN Student in an Organized Health Care Education/Training Program; FAMILY PHYSICIAN Family Medicine
PROC: 0T768DZ Dilation of Right Ureter with Intraluminal Device, Via Natural or Artificial Opening Endoscopic (ICD-10-PCS; 2024-09-27)
DX: A41.9 Sepsis, unspecified organism (principal); E87.20 Acidosis, unspecified; N13.6 Pyonephrosis; N17.9 Acute kidney failure, unspecified; R65.20 Severe sepsis without septic shock; I10 Essential (primary) hypertension; E11.9 Type 2 diabetes mellitus without complications; G47.33 Obstructive sleep apnea (adult) (pediatric); E78.5 Hyperlipidemia, unspecified; B96.1 Klebsiella pneumoniae [K. pneumoniae] as the cause of diseases classified elsewhere; Z87.442 Personal history of urinary calculi; Z11.52 Encounter for screening for COVID-19; Z79.84 Long term (current) use of oral hypoglycemic drugs; Z79.82 Long term (current) use of aspirin
CPT/HCPCS: 74018; 74176; 76000; 80048; 80053; 81003; 81015; 82570; 82962; 83036; 83605; 83735; 84300; 85025; 85027; 87040; 87077; 87086; 87186; 87502; 87811; 93005; 96361; 96374; 96375; 96376; 99285; C2617

== ENCOUNTER 2024-10-24 06:19 | Day surgery (SDC) | payer BC, SELFPAY ==
[2024-10-24] VITALS (8 sets, daily range): BP systolic 100–143; BP diastolic 59–80; BMI 26.1
[2024-10-24 08:15] LABS: Glucose - Point of Care 139 mg/dl (70-99)
[2024-10-24] MEDS: NORMOSOL-R/PLASMALYTE-A 1000 IV (08:21)
[2024-10-24 09:44] LABS: Glucose - Point of Care 148 mg/dl (70-99)
== END 2024-10-24 11:15 | disposition home or self-care (01) ==
LOC: SDS 06:19
PROVIDERS: ATTENDING PHYSICIAN Specialist
DX: N20.2 Calculus of kidney with calculus of ureter (principal); N81.10 Cystocele, unspecified
CPT/HCPCS: 52356; 74018; 76000; 82365; 82962; C1894; C2617; J1580

== ENCOUNTER 2025-01-25 06:33 | Day surgery (SDC) | payer BC, SELFPAY ==
[2025-01-12 11:56] LABS: Hematocrit 36.8 % (37.0-47.0); Hemoglobin 11.3 g/dL (12.0-16.0); Mean Corp Hgb Conc. 30.7 g/dL (33.0-37.0); Mean Corpuscular Volume 89.8 fL (81.0-99.0); Nucleated Red Blood Cells % 0 %; Platelet Count 235 10^3/uL (130-400); Red Cell Dist. Width 13.7 % (11.5-14.5)
[2025-01-12 12:42] LABS: Blood Urea Nitrogen 25 mg/dl (7-17); Calcium 9.8 mg/dl (8.4-10.2); Carbon Dioxide 23 mmol/L (22-30); Chloride 109 mmol/L (98-107); Glucose 142 mg/dl (70-99); Potassium 4.9 mmol/L (3.5-5.1); Sodium 137 mmol/L (135-145); eGFR 39.23
[2025-01-25] VITALS (11 sets, daily range): BP systolic 117–171; BP diastolic 56–104; BMI 27.0
[2025-01-25] MEDS: NORMOSOL-R/PLASMALYTE-A 1000 IV (07:55)
[2025-01-25 08:09] LABS: Glucose - Point of Care 128 mg/dl (70-99)
[2025-01-25 08:21] LABS: Urine Character Cloudy (Clear)
[2025-01-25 09:07] LABS: Urine White Cell >100 /HPF (0-5)
[2025-01-25 09:15] LABS: Urine Red Blood Cell 0-2 /HPF (0-2)
[2025-01-25 10:31] LABS: Glucose - Point of Care 131 mg/dl (70-99)
== END 2025-01-25 12:10 | disposition home or self-care (01) ==
LOC: SDS 06:33
PROVIDERS: ATTENDING PHYSICIAN Specialist
DX: N20.0 Calculus of kidney (principal)
CPT/HCPCS: 52356; 36415; 74018; 76000; 80048; 81003; 81015; 82962; 85025; 87086; C1894; C2617

== ENCOUNTER → 2025-02-23 08:23 | Outpatient (REF) | payer BC, SELFPAY | LOC: HWRCS 08:23 | PROVIDERS: ATTENDING PHYSICIAN Internal Medicine Cardiovascular Disease; FAMILY PHYSICIAN Specialist | DX: I35.1 Nonrheumatic aortic (valve) insufficiency (principal); N20.0 Calculus of kidney | CPT/HCPCS: 74018; 93306 ==